=== PATIENT | male | born 1965 | race Caucasian/White ===

== ENCOUNTER 2020-09-11 13:30 | Emergency (ER) | payer BC ==
[~2020-09-11] VITALS: Ht 175.3 cm; Wt 94.8 kg
[2020-09-11 13:37] VITALS: BP 171/96
--- NOTE | 2020-09-11 13:50 | NUR ---
55 YEAR OLD MALE COMPLAINS OF BLURRED VISION AND SOB X TODAY. PATIENT STATES RECEIVING SECOND DOSE OF MODERNA COVID VACCINE AND EXPERIENCED BLURRED VISSION "SHORTLY AFTER" FOLLOWED BY SOB. ASMITA. CLEAR LUNG SOUNDS HEARD BILATERALLY, BREATHING EVEN AND UNLABORED, SPO2 99%, SYMMETRICAL CHEST EXPANSION NOTED, DENIES PRESENCE OF COUGH, DENIES LOSS OF TASTE/SMELL. AO4, SKIN WARM AND DRY. BED IN LOWETS POSITION, LOCKED, X1 SIDERAIL UP. PATIENT ON MONITOR. PMH - HTN NKA
[2020-09-11 14:17] LABS: BASOPHILS # (AUTO) 0.1 K/uL (0.00-0.22); BASOPHILS % (AUTO) 0.6 % (0.0-2.0); EOSINOPHILS # (AUTO) 0.1 K/uL (0-0.4); EOSINOPHILS % (AUTO) 0.8 % (0.0-4.0); HEMATOCRIT 44.7 % (36-52); HEMOGLOBIN 15.3 g/dL (12.0-18.0); LYMPHOCYTES # (AUTO) 1.8 K/uL (2.0-11.5); LYMPHOCYTES % (AUTO) 18.7 % (20.5-51.1); MEAN CORPUSCULAR HEMOGLOBIN 29 pg (27-31); MEAN CORPUSCULAR HGB CONC 34 g/dL (33-37); MEAN CORPUSCULAR VOLUME 85.5 fL (80-94); MONOCYTES # (AUTO) 0.7 K/uL (0.8-1.0); NEUTROPHILS # (AUTO) 6.9 K/uL (1.8-7.7); NEUTROPHILS % (AUTO) 72.9 % (42.2-75.2); PLATELET COUNT (AUTO) 215 K/uL (140-450); RED BLOOD CELL COUNT(AUTO) 5.23 MIL/uL (4.20-6.10); RED CELL DISTRIBUTION WIDTH 13.7 % (11.6-13.7); WHITE BLOOD COUNT (AUTO) 9.4 K/uL (4.8-10.8)
--- NOTE | 2020-09-11 14:19 | NUR ---
behavioral technician at pt bedside.
[2020-09-11 14:35] LABS: ALBUMIN 3.9 g/dL (3.4-5.0); ANION GAP 11.5 (8-16); CARBON DIOXIDE 27.8 mmol/L (21-32); CREATININE 0.9 mg/dL (0.6-1.3); POTASSIUM 4.3 mmol/L (3.5-5.1); TOTAL BILIRUBIN 0.3 mg/dL (0.0-1.0)
--- NOTE | 2020-09-11 14:52 | NUR ---
PT ROAD TEST COMPLETED, PT AMBULATED TO NURSES STATION AND BACK TO BED 7 WITH OUT ISSUES. PA NOTIFIED
[2020-09-11 15:05] VITALS: BP 165/89
--- NOTE | 2020-09-11 15:05 | NUR ---
Patient discharged with v/s stable. Written and verbal after care instructions about syncope given and explained. Patient verbalized understanding. Ambulatory with steady gait. All questions addressed prior to discharge. Advised to follow up with PMD.
== END 2020-09-11 15:05 | disposition home or self-care (01) ==
LOC: MED 13:30
DX: R55 Syncope and collapse (principal); T50.Z95A Adverse effect of other vaccines and biological substances, initial encounter; Y92.89 Other specified places as the place of occurrence of the external cause; I10 Essential (primary) hypertension; E78.00 Pure hypercholesterolemia, unspecified
CPT/HCPCS: 36415; 71045; 80053; 83690; 84484; 85025; 93005; 99285